=== PATIENT | female | born 1950 | race Caucasian/White ===

== ENCOUNTER 2020-10-28 12:47 | Outpatient (CLI) | payer MEDICARE, OTHER, SELFPAY ==
[2020-10-28 13:30] LABS: Basophils % 0.5 %; Eosinophils # 0.3 10^3/uL (0.0-0.8); Eosinophils % 4.9 %; Hematocrit 28.2 % (37.0-47.0); Hemoglobin 8.9 g/dL (11.5-15.3); Lymphocytes # 0.8 10^3/uL (0.8-4.8); Lymphocytes % 12.4 %; Mean Corpuscular HGB Conc 31.6 g/dL (30.0-36.0); Mean Corpuscular Hemoglobin 32.1 pg (28.0-34.0); Mean Corpuscular Volume 101.8 fL (81-99); Mean Platelet Volume 10.7 fL (7.4-10.4); Monocytes # 0.5 10^3/uL (0.2-0.9); Monocytes % 8.1 %; Neutrophils # 4.73 10^3/uL (1.8-7.7); Neutrophils % 73.9 %; Nucleated Red Blood Cells % 0 %; Platelet Count 288 10^3/cmm (130-400); Red Blood Count 2.77 10^6/uL (4.1-5.3); Red Cell Distribution Width 13.8 % (12.1-15.1); White Blood Count 6.4 10^3/uL (4.0-10.0)
== END 2020-10-28 12:48 | disposition home or self-care (01) ==
PROVIDERS: Visit Provider Transplant Surgery
DX: C25.0 Malignant neoplasm of head of pancreas (principal); R42 Dizziness and giddiness
CPT/HCPCS: 85025

== ENCOUNTER 2020-10-31 11:06 | Outpatient (CLI) | payer MEDICARE, OTHER, SELFPAY | END 2020-10-31 11:07 | disposition home or self-care (01) | PROVIDERS: Visit Provider Internal Medicine Cardiovascular Disease | DX: C25.9 Malignant neoplasm of pancreas, unspecified (principal) | CPT/HCPCS: 85025 ==